=== PATIENT | male | born 1995 | race American Indian/Alaskan Native ===

== ENCOUNTER 2016-11-04 11:33 | Emergency (ER) | payer SELFPAY ==
--- NOTE | 2016-11-04 12:04 | Emergency Department Report ---
ED Psych HPI - General Stated Complaint: 1013/MH Time Seen by Provider: 11/04/16 11:50 Source: patient, police Mode of arrival: Ambulatory Limitations: Other (guarded history) - History of Present Illness Initial Comments: Patient states that he called I assume a crisis line to get help. He states that he thought he was going to speak to a gas line installer supervisor but the police arrived instead. He denies telling the police that he wanted to kill himself. He denies trying to hang himself. [facility] police detention attendant left a report stating "stated he wanted to kill himself to be with mother several times ran from the police made hanging nooses with cable cords". Patient denies any previous prescription of psychiatric medications. He states that he did have some counseling in the past. He states when he was incarcerated he did get a mental health evaluation however, he states he was just "playing with them to get out of nursing home". At this time the patient is cooperative with this examiner. 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 He takes no medications. He does not report drugs or alcohol. MD Complaint: suicidal ideation (per report) -: unknown Associated Psychiatric Symptoms: none History of same: Yes (possibly) Quality: other (patient with guarded history) Improves With: none Worsens With: none Associated Symptoms: denies other symptoms Treatments Prior to Arrival: none If Self Harm: other (conflicting history) - Related Data Allergies Allergy/AdvReac Type Severity Reaction Status Date / Time No Known Allergies Allergy Unverified 11/04/16 13:12 ED Review of Systems ROS: Stated complaint: 1013/MH Other details as noted in HPI Constitutional: denies: chills, fever Eyes: denies: eye pain, eye discharge, vision change ENT: denies: ear pain, throat pain Respiratory: denies: cough, shortness of breath, wheezing Cardiovascular: denies: chest pain, palpitations Endocrine: no symptoms reported Gastrointestinal: denies: abdominal pain, nausea, diarrhea Genitourinary: denies: urgency, dysuria Musculoskeletal: denies: back pain, joint swelling, arthralgia Skin: denies: rash, lesions Neurological: denies: headache, weakness, paresthesias Psychiatric: suicidal thoughts (apparently per report of police detention attendant), other (states obsessive thoughts concerning his mother). denies: anxiety, depression , auditory hallucinations, visual hallucinations, homicidal thoughts Hematological/Lymphatic: denies: easy bleeding, easy bruising ED Past Medical Hx - Surgical History Past Surgical History?: Yes Additional Surgical History: Previous cardiac surgery as an - Social History Other Social History: States lives in a 3 bedroom apartment with his ED Physical Exam - General Limitations: Other (guarded history) General appearance: alert, in no apparent distress - Head Head exam: Present: atraumatic, normocephalic - Eye Eye exam: Present: normal appearance. Absent: scleral icterus - ENT ENT exam: Present: mucous membranes moist - Neck Neck exam: Present: normal inspection - Respiratory Respiratory exam: Present: normal lung sounds bilaterally. Absent: respiratory distress - Cardiovascular Cardiovascular Exam: Present: regular rate, normal rhythm. Absent: systolic murmur, diastolic murmur, rubs, gallop - GI/Abdominal GI/Abdominal exam: Present: soft, normal bowel sounds. Absent: distended, tenderness, guarding, rebound - Rectal Rectal exam: Present: deferred - Extremities Exam Extremities exam: Present: normal inspection - Back Exam Back exam: Present: normal inspection - Neurological Exam Neurological exam: Present: alert, oriented X3, CN II-XII intact, normal gait. Absent: motor sensory deficit - Psychiatric Psychiatric exam: Present: agitated (mildly), anxious, other (somewhat hyperverbal) - Skin Skin exam: Present: warm, dry, intact, normal color. Absent: rash ED Course - Reevaluation(s) Reevaluation #1: Spoke with mental health counselor. We agree patient meets 1013 criteria. He was placed on a 1013. Apparently while I was gauged in a central line elsewhere , he had an agitated outbursts. He was given Geodon. I'm going to add a when necessary prescription for additional Geodon and place him on oral as well. 11/04/16 13:31 ED Medical Decision Making - Lab Data Result diagrams: 11/04/16 11:58 11/04/16 11:58 Critical care attestation.: If time is entered above; I have spent that time in minutes in the direct care of this critically ill patient, excluding procedure time. ED Disposition Clinical Impression: Psychotic depression Suicide gesture Qualifiers: Encounter type: initial encounter Qualified Code(s): X83.8XXA - Intentional self-harm by other specified means, initial encounter Disposition: DC/TX-65 PSY HOSP/PSY UNIT Is pt being admited?: No Does the pt Need Aspirin: No Condition: Stable Time of Disposition: 13:32
[2016-11-04 12:09] LABS: Eosinophils % (Auto) 3.7 % (0.0-4.3); Hematocrit 43.5 % (35.5-45.6); Hemoglobin 14.3 gm/dl (11.8-15.2); Mean Corpuscular HGB Conc 33 % (32-34); Mean Corpuscular Hemoglobin 31 pg (28-32); Mean Corpuscular Volume 93 fl (84-94); Platelet Count 293 K/mm3 (140-440); Red Blood Count 4.68 M/mm3 (3.65-5.03); Red Cell Distribution Width 14.4 % (13.2-15.2); White Blood Count 5.9 K/mm3 (4.5-11.0)
[2016-11-04 12:48] LABS: Creatine Kinase MB 1.2 ng/mL (0.0-4.0)
[2016-11-04 12:52] LABS: Alanine Aminotransferase 21 units/L (7-56); Albumin 4.9 g/dL (3.9-5); Albumin/Globulin Ratio 1.3 %; Alkaline Phosphatase 91 units/L (35-129); Anion Gap 17 mmol/L; Blood Urea Nitrogen 12 mg/dL (9-20); Calcium 10.2 mg/dL (8.4-10.2); Carbon Dioxide 28 mmol/L (22-30); Chloride 101.1 mmol/L (98-107); Creatine Kinase 122 units/L (55-170); Glucose 94 mg/dL (75-100); Sodium 142 mmol/L (137-145); Total Protein 8.7 g/dL (6.3-8.2)
[2016-11-04] MEDS ORDERED: GEODON IM ONE (13:25)
[2016-11-04] MEDS ORDERED: GEODON IM PRN (13:33)
[2016-11-04 19:39] LABS: Urine Drugs of Abuse Note Disclamer
[2016-11-04 19:49] LABS: Bilirubin,Urine NEG (Negative); Blood,Urine NEG (Negative); Ketones,Urine NEG (Negative); Leukocyte Esterase,Urine TR (Negative); Nitrite,Urine NEG (Negative); Protein,Urine <15 mg/dL mg/dL (Negative); RBC,Urine < 1.0 /HPF (0.0-6.0); Urobilinogen,Urine < 2.0 mg/dL (<2.0)
[2016-11-04] MEDS: GEODON PO SCH (22:20)
[2016-11-05] MEDS: GEODON PO SCH ×2 (10:54→21:49)
--- NOTE | 2016-11-05 16:36 | Consultation ---
History of Present Illness - Reason for Consult Consult date: 11/05/16 Reason for consult: psychiatric evaluation, suicidal gesture - Chief Complaint Chief complaint: "I made a mistake." 21 year old AA male seen for psychiatric evaluation in the ER. Patient states that he called 911 to get help. He reports having an arugument with his girlfriend and then thinking about his mother's 4 months ago. He made a noose out of cords and stated he would kill himself. He then called 911 back and said he was not going to. Per the record, [facility] police commanding officer left a report stating "stated he wanted to kill himself to be with mother several times ran from the police made hanging nooses with cable cords". Patient denies any previous prescription of psychiatric medications. The following information is from the record. He did not disclose the following when asked specifically about mental health history and treatment. He states that he did have some counseling in the past. He states when he was incarcerated he did get a mental health evaluation however, he states he was just "playing with them to get out of custodial". He reports a history of ADHD to this author. He takes no medications. He reports smoking marijuana and drinking alcohol on the weekend. He was tangential throughout the interview and giving reasons he does not need further stabilization. He was pleading to be discharged. Per the nurse, the patient makes statements often about killing himself according to the family and is believed to be for attention. He currently denies suicidal or homicidal ideation. He denies psychotic symptoms. Medications and Allergies Allergies Allergy/AdvReac Type Severity Reaction Status Date / Time No Known Allergies Allergy Unverified 11/04/16 13:12 Home Medications Medication Instructions Recorded Confirmed Last Taken Type No Known Home Medications [No 11/04/16 11/04/16 Unknown History Reported Home Medications] Active Meds: Active Medications Ziprasidone (Geodon) 20 mg PO BID REJI Last Admin: 11/05/16 10:54 Dose: 20 mg Ziprasidone (Geodon) 10 mg IM Q12H PRN PRN Reason: Agitation Last Admin: 11/04/16 14:06 Dose: 10 mg Past psychiatric history - Past Medical History Past Medical History: other (congenital heart defect) Past Surgical History: Other (heart surgery, per the record) - past Psychiatric treatment and history psychiatric treatment history: denies a history of suicide attempts - Social History Social history: lives with family (employed) Mental Status Exam - Vital signs Last Vital Signs Temp 98.9 F 11/05/16 01:00 Pulse 72 11/05/16 01:00 Resp 16 11/05/16 01:00 BP 119/70 11/05/16 01:00 Pulse Ox 18 L 11/05/16 01:00 - Exam Orientation: time, place, person Affect: anxious Mood: congruent with affect Thought content: other (no current SI, no HI) Thought Process: Tangential (and perseverative) Perceptions: none Speech: normal rate and pattern Concentration: focused Motor activity: normal Level of consciousness: alert Memory: Intact Sleep Symptoms: None Interaction: other (desperate) Results Result Diagrams: 11/04/16 11:58 11/04/16 11:58 All other labs normal. Assessment and Plan Assessment and plan: Impression: suicidal gesture r/o bipolar major depressive disorder cannabis use historical diagnosis of ADHD Recommendations: 1013 and transfer to inpatient psychiatric facility Start prozac 20mg daily for depressive symptoms. Informed of medication side effects. monitor for suicidal ideation.
[2016-11-06] MEDS: GEODON PO SCH (10:14)
[2016-11-06] MEDS: PROzac PO SCH (10:14)
--- NOTE | 2016-11-06 13:40 | Progress Note ---
Subjective - Reason for Consult Consult date: 11/06/16 Reason for consult: Psychiatry Follow-up - Chief Complaint Chief complaint: "I was wrong" 21 year old AA male seen for psychiatric evaluation in the ER. Today patient is calm and cooperative during assessment. He stated feeling down and sad about the of his mother 4 months ago. He denies wanting to kill himself with a noose (cord). He denies a mental health hx, but stated that he saw a therapist when incarcerated. He stated that he does feel down when he think about his mother. He stated that they had a "wonderful" relationship. He stated having fulltime employment and getting soon. He is adamant that he never wanted to kill himself with a noose. He denies SI/HI's, AVH's, and depression. He denies any side effects of hhis medication. Mental Status Exam - Vital signs Last Vital Signs Temp 99.3 F 11/06/16 09:04 Pulse 58 L 11/06/16 09:04 Resp 18 11/06/16 09:04 BP 113/71 11/06/16 09:04 Pulse Ox 100 11/06/16 09:04 - Exam Narrative exam: MSE: Appearance: calm, cooperative Behavior: regular eye contact Speech: regular rate and tone Mood: "I am good" Affect: congruent to mood Thought Process: circumstantial Thought Content: denies SI/HI's and AVH's Motor Activity: ambulatory Cognition: A/Ox 3 Insight: fair Judgment: fair Assessment and Plan Impression: Historical Dx: ADHD. MDD, Cannabis Use DO. Today patient is calm and cooperative during assessment. He denies SI's. Recommendations: Evaluate 1013 in 24 to determine proper dispo. Continue Prozac 20mg PO Daily for depressive symptoms. Informed of medication side effects. monitor for suicidal ideation.
[2016-11-07] MEDS ORDERED: BENADRYL PO ONE (01:45)
[2016-11-07 07:01] VITALS: BP 113/65
[2016-11-07] MEDS: PROzac PO SCH (09:47)
--- NOTE | 2016-11-07 12:39 | Progress Note ---
Subjective - Reason for Consult Consult date: 11/07/16 Reason for consult: Psychiatry Follow-up - Chief Complaint Chief complaint: "I have to make better decisions" 21 year old AA male seen for psychiatric evaluation in the ER. Today patient is calm and cooperative during assessment. He admitted to making the noose and gesturing SI's prior to his admission to [facility]. He stated that he didn't tell the "truth" initially" because he didn't want to feel "stupid." He acknowledged it's other ways he could have handled the situation with his girlfriend. I spoke with Memo Monreal [phone] the patient's girlfriend and he stated that he has never tried to harm himself in the past or stated that he wanted to kill himself. She stated that they have gotten into some disagreements in the past, but normally work them out. She stated that the patient can return home once discharged. He stated he want to continue to take Prozac and attend family therapy at [facility]. He denies SI/HI's, AVH's, and depression. Mental Status Exam - Vital signs Last Vital Signs Temp 98 F 11/07/16 07:00 Pulse 71 11/07/16 07:00 Resp 18 11/07/16 10:00 BP 113/65 11/07/16 07:00 Pulse Ox 100 11/07/16 10:00 - Exam Narrative exam: MSE: Appearance: calm, cooperative Behavior: regular eye contact Speech: regular rate and tone Mood: "I am good" Affect: congruent to mood Thought Process: circumstantial Thought Content: denies SI/HI's and AVH's Motor Activity: ambulatory Cognition: A/Ox 3 Insight: fair Judgment: fair Assessment and Plan Impression: Historical Dx: ADHD. MDD, Cannabis Use DO. Today patient is calm and cooperative during assessment. Patient is no threat to self. Recommendations: Rescind 1013. Continue Prozac 20mg PO Daily for depressive. Informed of medication side effects. Patient can follow-up at [facility] for outpatient psy services/therapy.
--- NOTE | 2016-11-07 13:20 | Event Note ---
Date: 11/07/16 The patient is seen and examined. He is not homicidal or suicidal at this time. He has no complaints at this time. He is alert and oriented 3, with a GCS of 15, and an NIH score of 0. Psychiatry has recommended discontinuation of his 1013, and they have done so already. Patient is going to be discharged with outpatient resources. Return precautions are reviewed. The psychiatry team recommends Prozac, and the patient will be given a 1 week supply. Vital Signs 11/04/16 11/04/16 11/05/16 14:09 15:00 01:00 Temperature 98.6 F 98.9 F Pulse Rate 86 72 Respiratory 16 18 16 Rate Blood Pressure 126/76 119/70 [Left] Blood Pressure [Right] O2 Sat by Pulse 96 18 L Oximetry 11/05/16 11/05/16 11/06/16 09:10 19:00 09:04 Temperature 99.0 F 98.8 F 99.3 F Pulse Rate 67 55 L 58 L Respiratory 20 18 18 Rate Blood Pressure 123/74 94/59 [Left] Blood Pressure 113/71 [Right] O2 Sat by Pulse 97 100 100 Oximetry 11/06/16 11/07/16 11/07/16 20:45 02:01 07:00 Temperature 98 F 98 F 98 F Pulse Rate 74 67 71 Respiratory 18 20 18 Rate Blood Pressure 113/64 [Left] Blood Pressure 114/72 111/74 113/65 [Right] O2 Sat by Pulse 99 100 100 Oximetry 11/07/16 10:00 Temperature Pulse Rate Respiratory 18 Rate Blood Pressure [Left] Blood Pressure [Right] O2 Sat by Pulse 100 Oximetry Lab Results 11/04/16 11/04/16 11/04/16 Range/Units 11:58 11:58 11:58 WBC 5.9 (4.5-11.0) K/mm3 RBC 4.68 (3.65-5.03) M/mm3 Hgb 14.3 (11.8-15.2) gm/dl Hct 43.5 (35.5-45.6) % MCV 93 (84-94) fl MCH 31 (28-32) pg MCHC 33 (32-34) % RDW 14.4 (13.2-15.2) % Plt Count 293 (140-440) K/mm3 Lymph % (Auto) 36.6 H (13.4-35.0) % [place] % (Auto) 7.9 H (0.0-7.3) % Eos % (Auto) 3.7 (0.0-4.3) % Baso % (Auto) 1.0 (0.0-1.8) % Lymph # 2.1 (1.2-5.4) K/mm3 [place] # 0.5 (0.0-0.8) K/mm3 Eos # 0.2 (0.0-0.4) K/mm3 Baso # 0.1 (0.0-0.1) K/mm3 Seg Neutrophils % 50.8 (40.0-70.0) % Seg Neutrophils # 3.0 (1.8-7.7) K/mm3 Sodium 142 (137-145) mmol/L Potassium 4.0 (3.6-5.0) mmol/L Chloride 101.1 (98-107) mmol/L Carbon Dioxide 28 (22-30) mmol/L Anion Gap 17 mmol/L BUN 12 (9-20) mg/dL Creatinine 0.8 (0.8-1.5) mg/dL Estimated GFR > 60 ml/min BUN/Creatinine Ratio 15.00 % Glucose 94 (75-100) mg/dL Calcium 10.2 (8.4-10.2) mg/dL Magnesium 1.80 (1.7-2.3) mg/dL Total Bilirubin 0.30 (0.1-1.2) mg/dL AST 25 (5-40) units/L ALT 21 (7-56) units/L Alkaline Phosphatase 91 (35-129) units/L Total Creatine Kinase 122 (55-170) units/L CK-MB (CK-2) 1.2 (0.0-4.0) ng/mL CK-MB (CK-2) Rel Index 0.9 (0-4) Total Protein 8.7 H (6.3-8.2) g/dL Albumin 4.9 (3.9-5) g/dL Albumin/Globulin Ratio 1.3 % Urine Color (Yellow) Urine Turbidity (Clear) Urine pH (5.0-7.0) Ur Specific [place] (1.003-1.030) Urine Protein (Negative) mg/dL Urine Glucose (UA) (Negative) mg/dL Urine Ketones (Negative) mg/dL Urine Blood (Negative) Urine Nitrite (Negative) Urine Bilirubin (Negative) Urine Urobilinogen (<2.0) mg/dL Ur Leukocyte Esterase (Negative) Urine WBC (Auto) (0.0-6.0) /HPF Urine RBC (Auto) (0.0-6.0) /HPF Urine Opiates Screen Urine Methadone Screen Acetaminophen < 15.0 (10.0-30.0) ug/mL Ur Barbiturates Screen Ur Phencyclidine Scrn Ur Amphetamines Screen U Benzodiazepines Scrn Urine Cocaine Screen U Marijuana (THC) Screen Drugs of Abuse Note Plasma/Serum Alcohol (0-0.07) gm% 11/04/16 11/04/16 11/04/16 Range/Units 11:58 19:27 19:27 WBC (4.5-11.0) K/mm3 RBC (3.65-5.03) M/mm3 Hgb (11.8-15.2) gm/dl Hct (35.5-45.6) % MCV (84-94) fl MCH (28-32) pg MCHC (32-34) % RDW (13.2-15.2) % Plt Count (140-440) K/mm3 Lymph % (Auto) (13.4-35.0) % [place] % (Auto) (0.0-7.3) % Eos % (Auto) (0.0-4.3) % Baso % (Auto) (0.0-1.8) % Lymph # (1.2-5.4) K/mm3 [place] # (0.0-0.8) K/mm3 Eos # (0.0-0.4) K/mm3 Baso # (0.0-0.1) K/mm3 Seg Neutrophils % (40.0-70.0) % Seg Neutrophils # (1.8-7.7) K/mm3 Sodium (137-145) mmol/L Potassium (3.6-5.0) mmol/L Chloride (98-107) mmol/L Carbon Dioxide (22-30) mmol/L Anion Gap mmol/L BUN (9-20) mg/dL Creatinine (0.8-1.5) mg/dL Estimated GFR ml/min BUN/Creatinine Ratio % Glucose (75-100) mg/dL Calcium (8.4-10.2) mg/dL Magnesium (1.7-2.3) mg/dL Total Bilirubin (0.1-1.2) mg/dL AST (5-40) units/L ALT (7-56) units/L Alkaline Phosphatase (35-129) units/L Total Creatine Kinase (55-170) units/L CK-MB (CK-2) (0.0-4.0) ng/mL CK-MB (CK-2) Rel Index (0-4) Total Protein (6.3-8.2) g/dL Albumin (3.9-5) g/dL Albumin/Globulin Ratio % Urine Color Straw (Yellow) Urine Turbidity Clear (Clear) Urine pH 7.0 (5.0-7.0) Ur Specific [place] 1.004 (1.003-1.030) Urine Protein <15 mg/dl (Negative) mg/dL Urine Glucose (UA) Neg (Negative) mg/dL Urine Ketones Neg (Negative) mg/dL Urine Blood Neg (Negative) Urine Nitrite Neg (Negative) Urine Bilirubin Neg (Negative) Urine Urobilinogen < 2.0 (<2.0) mg/dL Ur Leukocyte Esterase Tr (Negative) Urine WBC (Auto) 2.0 (0.0-6.0) /HPF Urine RBC (Auto) < 1.0 (0.0-6.0) /HPF Urine Opiates Screen Presumptive negative Urine Methadone Screen Presumptive negative Acetaminophen (10.0-30.0) ug/mL Ur Barbiturates Screen Presumptive negative Ur Phencyclidine Scrn Presumptive negative Ur Amphetamines Screen Presumptive negative U Benzodiazepines Scrn Presumptive negative Urine Cocaine Screen Presumptive negative U Marijuana (THC) Screen Presumptive positive Drugs of Abuse Note Disclamer Plasma/Serum Alcohol < 0.01 (0-0.07) gm%
== END 2016-11-07 13:43 | disposition home or self-care (01) ==
LOC: ED 11:33 → EEVIPCON 11:33 → ED 11-07 13:43
DX: F32.9 Major depressive disorder, single episode, unspecified (principal); X83.8XXA Intentional self-harm by other specified means, initial encounter
CPT/HCPCS: 36415; 80053; 80307; 81001; 82550; 82553; 83735; 85025; 96372; 99285; G0480; J3486; 80320

== ENCOUNTER 2019-05-12 11:13 | Emergency (ER) | payer SELFPAY ==
--- NOTE | 2019-05-12 11:49 | Event Note ---
ED Screening Note ED Screening Note: 23 yo male with chest pain and back pain with movement for several days, worse with sitting up, better if he lays down. This initial assessment/diagnostic orders/clinical plan/treatment(s) is/are subject to change based on patients health status, clinical progression and re- assessment by fellow clinical providers in the ED. Further treatment and workup at subsequent clinical providers discretion. Patient/guardian urged not to elope from the ED as their condition may be serious if not clinically assessed and managed. Initial orders include: ekg cxr
[2019-05-12 11:51] VITALS: BP 129/74
--- NOTE | 2019-05-12 12:34 | XRay Report ---
CHEST 2 VIEWS INDICATION: chest pain with movement. COMPARISON: FINDINGS: Support devices: None. Heart: Within normal limits. However, attention directed to a homogeneous density along the left medi astinum-heart border in the vicinity of the main pulmonary artery-pulmonary trunk which probably repr esents enlarged pulmonary trunk. A soft tissue mass could produce similar findings Lungs: No acute air space or interstitial disease. Pleura: No significant pleural effusion. No pneumothorax. Additional findings: None. IMPRESSION: 1. Probable enlarged pulmonary artery-pulmonary trunk, recommend CT of the chest with contrast for co nfirmation. Signer Name: Sarkis Ortega MD Signed: 05/12/2019 12:30 PM Workstation Name: [id number]
[2019-05-12] MEDS ORDERED: ONDANSETRON 4 MG/2 ML INJ IV ONE (13:20)
[2019-05-12] MEDS ORDERED: SODIUM CHLORIDE 0.9% 1000 ML 1,000 ML IV ONE (13:20)
[2019-05-12] MEDS ORDERED: MORPHINE 4 MG/1 ML INJ IV ONE (13:20)
[2019-05-12 14:16] LABS: Hematocrit 39.1 % (35.5-45.6); Hemoglobin 13.1 gm/dl (11.8-15.2); Mean Corpuscular HGB Conc 34 % (32-34); Mean Corpuscular Volume 91 fl (84-94); Platelet Count 318 K/mm3 (140-440); Red Blood Count 4.27 M/mm3 (3.65-5.03); Red Cell Distribution Width 14.1 % (13.2-15.2)
--- NOTE | 2019-05-12 14:35 | Emergency Department Report ---
ED Chest Pain HPI - General Chief Complaint: Chest Pain Stated Complaint: CP Time Seen by Provider: 05/12/19 12:59 Source: patient Mode of arrival: Ambulatory Limitations: No Limitations - History of Present Illness Initial Comments: This is a 23-year-old male nontoxic, well nourished in appearance, no acute signs of distress presents to the ED with c/o of midsternual chest pain x2 days. Patient denies any radiation of pain. Stated has been heavy lifting at work and developed pain. Patient describes pain as aching and worse with movement and resolved with rest. Patient denies any upper respiratory symptoms. Patient denies any shortness of breath, hemoptysis, fever, chills, nausea, vomiting, headache, stiff neck, numbness, tingling, abdominal pain. Patient denies pleuritic chest pain. Patient denies any recent travels or long car rides. P atient denies any recent surgeries or any sick contacts. Patient denies any drug allergies. Past medical history includes cardiac surgery (unknown) at age 5 years. MD Complaint: chest pain -: days(s) Pain Location: substernal Pain Radiation: none Severity: mild Severity scale (0 -10): 8 Quality: aching Consistency: intermittent Improves With: rest Worsens With: movement re: denies: nausea, vomting, diaphoresis, dyspnea, sense of impending doom Other Symptoms: denies: cough, fever, syncope, rash, acid taste in mouth, leg swelling, palpitations, burping Treatments Prior to Arrival: none Aspirin use within the Past 7 Days: (0) No - Related Data Previous Rx's Medication Instructions Recorded Last Taken Type FLUoxetine [PROzac] 20 mg PO QDAY #10 capsule 11/07/16 Unknown Rx Dicyclomine [Bentyl] 40 mg PO Q8H 3 Days #9 tablet 01/06/18 Unknown Rx Ondansetron [Zofran Odt] 4 mg PO Q6H PRN #20 tab.rapdis 01/06/18 Unknown Rx Allergies Allergy/AdvReac Type Severity Reaction Status Date / Time No Known Allergies Allergy Unverified 11/04/16 13:12 Heart Score - HEART Score History: Slightly suspicious EKG: Normal Age: < 45 Risk factors: No known risk factors Troponin: < normal limit HEART Score: 0 ED Review of Systems ROS: Stated complaint: CP Other details as noted in HPI Constitutional: denies: chills, fever Eyes: denies: eye pain, eye discharge, vision change ENT: denies: ear pain, throat pain Respiratory: denies: cough, shortness of breath, wheezing Cardiovascular: chest pain. denies: palpitations Endocrine: no symptoms reported Gastrointestinal: denies: abdominal pain, nausea, diarrhea Genitourinary: denies: urgency, dysuria Musculoskeletal: denies: back pain, joint swelling, arthralgia Skin: denies: rash, lesions Neurological: denies: headache, weakness, paresthesias Psychiatric: denies: anxiety, depression Hematological/Lymphatic: denies: easy bleeding, easy bruising ED Past Medical Hx - Past Medical History Previous Medical History?: Yes Hx Psychiatric Treatment: Yes (ADHD) - Surgical History Past Surgical History?: Yes Additional Surgical History: Previous cardiac surgery as an infant - Social History Smoking Status: Current Every Day Smoker Substance Use Type: Alcohol, Marijuana - Medications Home Medications: Home Medications Medication Instructions Recorded Confirmed Last Taken Type FLUoxetine [PROzac] 20 mg PO QDAY #10 capsule 11/07/16 Unknown Rx Dicyclomine [Bentyl] 40 mg PO Q8H 3 Days #9 tablet 01/06/18 Unknown Rx Ondansetron [Zofran Odt] 4 mg PO Q6H PRN #20 tab.rapdis 01/06/18 Unknown Rx ED Physical Exam - General Limitations: No Limitations General appearance: alert, in no apparent distress - Head Head exam: Present: atraumatic, normocephalic - Eye Eye exam: Present: normal appearance - Neck Neck exam: Present: normal inspection, full ROM. Absent: tenderness, meningismus, lymphadenopathy - Respiratory Respiratory exam: Present: normal lung sounds bilaterally, chest wall tenderness (midsternum). Absent: respiratory distress, wheezes, rales, rhonchi, stridor, accessory muscle use, decreased breath sounds, prolonged expiratory - Cardiovascular Cardiovascular Exam: Present: regular rate, normal rhythm, normal heart sounds. Absent: tachycardia, irregular rhythm, systolic murmur, diastolic murmur, rubs, gallop - GI/Abdominal GI/Abdominal exam: Present: soft, normal bowel sounds. Absent: distended, tenderness, guarding, rebound, rigid, diminished bowel sounds - Extremities Exam Extremities exam: Present: normal inspection, full ROM - Back Exam Back exam: Present: normal inspection, full ROM - Neurological Exam Neurological exam: Present: alert, oriented X3, normal gait - Psychiatric Psychiatric exam: Present: normal affect, normal mood - Skin Skin exam: Present: warm, dry, intact, normal color. Absent: rash ED Course Vital Signs 05/12/19 11:49 Temperature 97.7 F Pulse Rate 57 L Respiratory 18 Rate Blood Pressure 129/74 O2 Sat by Pulse 100 Oximetry - Reevaluation(s) Reevaluation #1: 05/12/19 14:40 Patient is speaking in full sentences with no signs of distress noted. - Consultations Consultation #1: 05/12/19 14:41 Patient has been consulted with Fabiola Kerr about patient history, physical exam, and CXR and examined patient and agrees to ED plan of care with work-up. Consultation #2: 05/12/19 17:17 Patient was consulted with Dr. Rodrigues (speech assistant) and agrees for admission with hospitalist. DALTON score - Dalton Score Age > 65: (0) No Aspirin use within the Past 7 Days: (0) No 3 or more CAD Risk Factors: (0) No 2 or more Angina events in past 24 hrs: (0) No Known CAD with more than 50% Stenosis: (0) No Elevated Cardiac Markers: (0) No ST Deviation Greater than 0.5mm: (0) No DALTON Score: 0 ED Medical Decision Making - Lab Data Result diagrams: 05/12/19 13:26 05/12/19 13:26 - Medical Decision Making 23-year-old male that presents with chest pain and enlarged ascending aorta. Patient is currently stable and was examined by me. Labs has been obtained. CTA of chest has been obtained and dictated by radiologist. Patient was notified of the results and explained and agrees to treatment plan of care. Patient refused admission and stated he would rather follow-up with a speech assistant outpatient. I did instruct and educate patient of my concerns and patient still refused. Patient also refused to sign AMA form. Patient had a clear instructions that he must follow-up with a primary care or speech assistant as soon as possible as this condition is very life-threatening. At time of leaving, the patient does not seem toxic or ill in appearance. No acute signs of distress noted. No further questions noted by the patient. Critical care attestation.: If time is entered above; I have spent that time in minutes in the direct care of this critically ill patient, excluding procedure time. ED Disposition Clinical Impression: Ascending aorta enlargement Chest pain Qualifiers: Chest pain type: unspecified Qualified Code(s): R07.9 - Chest pain, unspecified Disposition: LEFT AGAINST MED ADVICE Is pt being admited?: No Condition: Undetermined Additional Instructions: Your condition may be serious as instructed and educated today in the ER but you decided to leave AGAINST MEDICAL ADVICE. It is highly recommended to see a provider as soon as possible to rule out serious complications that was described to you during your ED stay. Referrals: PRIMARY CARE, [Referring] - [facility] MD MCKINLEY [Primary Care Provider] - PARSIKLARISSA WIGGINS MD [Staff Physician] - DOLORES STAPLETON MD [Staff Physician] - [facility] [Outside] - [facility] Forms: AMA Form
[2019-05-12 14:36] LABS: INR 1.1 (0.87-1.13); Partial Thromboplastin Time 31.5 Sec. (24.2-36.6)
[2019-05-12 14:41] LABS: Alanine Aminotransferase 13 units/L (7-56); Albumin 4.4 g/dL (3.9-5); BUN/Creatinine Ratio 14; Blood Urea Nitrogen 11 mg/dL (9-20); Calcium 9.6 mg/dL (8.4-10.2); Hemolysis Index 14
--- NOTE | 2019-05-12 15:48 | Cat Scan Report ---
CTA CHEST WITH CONTRAST INDICATION : Chest pain, shortness of breath, abnormal EKG. TECHNIQUE: Axial imaging performed through the chest, with contrast bolus timing set to maximize opa cification of the pulmonary arteries. Sagittal and coronal reformatted images. 3-plane MIP reformatte d images were obtained. All CT scans at this location are performed using CT dose reduction for ALAR A by means of automated exposure control. 100 mL of intravenous contrast administered. COMPARISON: Chest x-ray performed the same day FINDINGS: Bolus: Contrast bolus timing is adequate. PTE: No filling defect is present to suggest PTE. The main pulmonary outflow tract is mildly dilated measuring 3.4 cm in diameter. Mediastinum: Mild cardiomegaly is evident. The aortic root appears mildly dilated particularly on th e sagittal reconstructed images measuring up to 5.2 cm in diameter. The ascending aorta measures 3.9 cm on the coronal reformatted images. There is no evidence for dissection or atherosclerotic disease. No pathologic mediastinal adenopathy. Lungs: Lungs are clear. Bones: Degenerative changes in the spine with nothing acute. Upper abdomen: Limited imaging of the upper abdomen shows nothing acute. IMPRESSION: No evidence for pulmonary embolus. Mild cardiomegaly. The aortic root appears dilated as outlined above. Is there concern for Marfan syndrome Lungs clear. Signer Name: Jared Dillon Jr, MD Signed: 05/12/2019 3:44 PM Workstation Name: [id number]
[2019-05-12 16:22] LABS: Platelet Estimate Consistent w Auto; RBC Morphology Normal; Total Cells Counted 100
== END 2019-05-12 17:50 | disposition left against medical advice (07) ==
LOC: ED 11:13
DX: R07.2 Precordial pain (principal); I77.819 Aortic ectasia, unspecified site; F90.9 Attention-deficit hyperactivity disorder, unspecified type; F17.200 Nicotine dependence, unspecified, uncomplicated; F12.10 Cannabis abuse, uncomplicated; Z79.899 Other long term (current) drug therapy
CPT/HCPCS: 36415; 71046; 71275; 80053; 84484; 85007; 85025; 85610; 85730; 93005; 93010; 99285; J7030; Q9967; J2270; J2405